=== PATIENT | female | born 1990 | race American Indian/Alaskan Native ===

== ENCOUNTER 2020-06-12 15:47 | Emergency (ER) | payer SELFPAY ==
--- NOTE | 2020-06-12 16:39 | Emergency Department Report ---
ED HPI - General Chief complaint: Vaginal Bleeding Stated complaint: 2MOS PREG BLEEDING Time Seen by Provider: 06/12/20 16:32 Source: patient Mode of arrival: Ambulatory Limitations: No Limitations - History of Present Illness Initial comments: Patient is a 30-year-old female presents emergency room with complaints of one episode of light vaginal spotting that occurred today. She states that she went to the bathroom and when she wiped she noticed a small amount of spotting. She denies any heavy bleeding or passing clots. She states that she has some mild lower abdominal pressure but denies any significant pain. She denies any nausea, vomiting, diarrhea, fever, dysuria, dark urine, odor to the urine, abnormal vaginal discharge, back pain. No past medical history. No allergies to medications. She states that she has an appointment with an ESTIMATOR PRINTING tomorrow 06/13/2020 which will be her first appointment. She states her last menstrual cycle was 04/21/2020. She states that this is her first . - Related Data Allergies Allergy/AdvReac Type Severity Reaction Status Date / Time No Known Allergies Allergy Unverified 06/12/20 16:21 ED Review of Systems ROS: Stated complaint: 2MOS PREG BLEEDING Other details as noted in HPI Comment: All other systems reviewed and negative ED Past Medical Hx - Past Medical History Previous Medical History?: No - Surgical History Additional Surgical History: tonsilectomy - Social History Smoking Status: Never Smoker ED Physical Exam - General Limitations: No Limitations General appearance: alert, in no apparent distress - Head Head exam: Present: atraumatic, normocephalic - Eye Eye exam: Present: normal appearance - ENT ENT exam: Present: mucous membranes moist - Respiratory Respiratory exam: Present: normal lung sounds bilaterally. Absent: respiratory distress, wheezes, rales, rhonchi, stridor, chest wall tenderness, accessory muscle use, decreased breath sounds, prolonged expiratory - Cardiovascular Cardiovascular Exam: Present: regular rate, normal rhythm, normal heart sounds. Absent: systolic murmur, diastolic murmur, rubs, gallop - GI/Abdominal GI/Abdominal exam: Present: soft, normal bowel sounds. Absent: distended, tenderness, guarding, rebound, rigid - Neurological Exam Neurological exam: Present: alert, oriented X3 - Psychiatric Psychiatric exam: Present: normal affect, normal mood - Skin Skin exam: Present: warm, dry, intact ED Course Vital Signs 06/12/20 06/12/20 16:18 18:57 Temperature 98.9 F Pulse Rate 111 H 94 H Respiratory 18 18 Rate Blood Pressure 141/84 Blood Pressure 137/78 [Left] O2 Sat by Pulse 98 100 Oximetry ED Medical Decision Making - Lab Data Result diagrams: 06/12/20 16:43 06/12/20 16:43 Lab Results 06/12/20 06/12/20 06/12/20 Range/Units 16:43 16:43 16:43 WBC 4.5 (4.5-11.0) K/mm3 RBC 3.77 (3.65-5.03) M/mm3 Hgb 13.3 (10.1-14.3) gm/dl Hct 36.9 (30.3-42.9) % MCV 98 H (79-97) fl MCH 35 H (28-32) pg MCHC 36 H (30-34) % RDW 12.6 L (13.2-15.2) % Plt Count 303 (140-440) K/mm3 Lymph % (Auto) 38.5 H (13.4-35.0) % Page % (Auto) 9.0 H (0.0-7.3) % Eos % (Auto) 0.7 (0.0-4.3) % Baso % (Auto) 1.3 (0.0-1.8) % Lymph # (Auto) 1.7 (1.2-5.4) K/mm3 [place] # (Auto) 0.4 (0.0-0.8) K/mm3 Eos # (Auto) 0.0 (0.0-0.4) K/mm3 Baso # (Auto) 0.1 (0.0-0.1) K/mm3 Seg Neutrophils % 50.5 (40.0-70.0) % Seg Neutrophils # 2.3 (1.8-7.7) K/mm3 Sodium 136 L (137-145) mmol/L Potassium 3.6 (3.6-5.0) mmol/L Chloride 100.7 (98-107) mmol/L Carbon Dioxide 26 (22-30) mmol/L Anion Gap 13 mmol/L BUN 7 (7-17) mg/dL Creatinine 0.6 (0.6-1.2) mg/dL Estimated GFR > 60 ml/min BUN/Creatinine Ratio 12 % Glucose 94 (65-100) mg/dL Calcium 9.7 (8.4-10.2) mg/dL HCG, Quant 4474 H (0-4) mIU/mL Urine Color (Yellow) Urine Turbidity (Clear) Urine pH (5.0-7.0) Ur Specific [place] (1.003-1.030) Urine Protein (Negative) mg/dL Urine Glucose (UA) (Negative) mg/dL Urine Ketones (Negative) mg/dL Urine Blood (Negative) Urine Nitrite (Negative) Urine Bilirubin (Negative) Urine Urobilinogen (<2.0) mg/dL Ur Leukocyte Esterase (Negative) Urine WBC (Auto) (0.0-6.0) /HPF Urine RBC (Auto) (0.0-6.0) /HPF U Epithel Cells (Auto) (0-13.0) /HPF Urine Bacteria (Auto) (Negative) /HPF Urine Mucus /HPF Blood Type 06/12/20 06/12/20 Range/Units 16:43 16:45 WBC (4.5-11.0) K/mm3 RBC (3.65-5.03) M/mm3 Hgb (10.1-14.3) gm/dl Hct (30.3-42.9) % MCV (79-97) fl MCH (28-32) pg MCHC (30-34) % RDW (13.2-15.2) % Plt Count (140-440) K/mm3 Lymph % (Auto) (13.4-35.0) % Page % (Auto) (0.0-7.3) % Eos % (Auto) (0.0-4.3) % Baso % (Auto) (0.0-1.8) % Lymph # (Auto) (1.2-5.4) K/mm3 [place] # (Auto) (0.0-0.8) K/mm3 Eos # (Auto) (0.0-0.4) K/mm3 Baso # (Auto) (0.0-0.1) K/mm3 Seg Neutrophils % (40.0-70.0) % Seg Neutrophils # (1.8-7.7) K/mm3 Sodium (137-145) mmol/L Potassium (3.6-5.0) mmol/L Chloride (98-107) mmol/L Carbon Dioxide (22-30) mmol/L Anion Gap mmol/L BUN (7-17) mg/dL Creatinine (0.6-1.2) mg/dL Estimated GFR ml/min BUN/Creatinine Ratio % Glucose (65-100) mg/dL Calcium (8.4-10.2) mg/dL HCG, Quant (0-4) mIU/mL Urine Color Yellow (Yellow) Urine Turbidity Slightly-cloudy (Clear) Urine pH 7.0 (5.0-7.0) Ur Specific [place] 1.027 (1.003-1.030) Urine Protein 30 mg/dl (Negative) mg/dL Urine Glucose (UA) Neg (Negative) mg/dL Urine Ketones Neg (Negative) mg/dL Urine Blood Sm (Negative) Urine Nitrite Neg (Negative) Urine Bilirubin Neg (Negative) Urine Urobilinogen 2.0 (<2.0) mg/dL Ur Leukocyte Esterase Tr (Negative) Urine WBC (Auto) 2.0 (0.0-6.0) /HPF Urine RBC (Auto) 2.0 (0.0-6.0) /HPF U Epithel Cells (Auto) 20.0 H (0-13.0) /HPF Urine Bacteria (Auto) 1+ (Negative) /HPF Urine Mucus 3+ /HPF Blood Type O POSITIVE Vital Signs 06/12/20 06/12/20 16:18 18:57 Temperature 98.9 F Pulse Rate 111 H 94 H Respiratory 18 18 Rate Blood Pressure 141/84 Blood Pressure 137/78 [Left] O2 Sat by Pulse 98 100 Oximetry - Radiology Data Radiology results: report reviewed Ordering Physician: ANDREAS GARCIA Date of Service: 06/12/20 Procedure(s): US OB transvaginal Accession Number(s): [id number] cc: ANDREAS GARCIA OBSTETRICAL ULTRASOUND HISTORY: . Spotting. FINDINGS: The uterus measures 8.4 x 4.2 x 5.7 cm. 3 small cystic structures are seen at t he endometrial cavity. No pole or yolk sac is identified. Right ovary measures 2.8 x 1.5 x 2.6 cm. Left ovary measures 4.5 x 2.2 x 2.6 cm and contains a 2 cm simple cyst and a 9 mm complex cyst. Both ovaries demonstrate flow. Negative for adnexal mass or fluid. IMPRESSION: 1. 3 cystic structures at the endometrial cavity could represent an early gestational sacs. This could be evaluated on follow-up. 2. Simple cyst and small complex cyst left ovary. Signer Name: Minor Taylor MD Signed: 06/12/2020 6:03 PM Workstation Name: [id number] Transcribed By: ES Dictated By: Minor Taylor MD Electronically Authenticated By: Minor Taylor MD Signed Date/Time: 06/12/201802 DD/ 00 TD/TT: - Medical Decision Making Patient is a 30-year-old female presents emergency room with complaints of one episode of light vaginal spotting that occurred today. She states that she went to the bathroom and when she wiped she noticed a small amount of spotting. She denies any heavy bleeding or passing clots. She states that she has some mild lower abdominal pressure but denies any significant pain. She denies any nausea, vomiting, diarrhea, fever, dysuria, dark urine, odor to the urine, abnormal vaginal discharge, back pain. No past medical history. No allergies to medications. She states that she has an appointment with an EST[employer]ATOR [employer] tomorrow 06/13/2020 which will be her first appointment. She states her last menstrual cycle was 04/21/2020. She states that this is her first . Initial vitals with elevated heart rate which improved upon repeat. No abdominal tenderness on exam, no guarding, no rigidity, no peritoneal signs. Labs are stable. Patient is Rh+. hCG quant is 4474. UA shows epithelial cells from contamination, otherwise stable. OB US: 1. 3 cystic structures at the endometrial cavity could represent an early gestational sacs. This could be evaluated on follow-up. 2. Simple cyst and small complex cyst left ovary. Discussed all results with patient and answered questions. Discussed the importance of close [employer] [employer] follow-up, she already has appointment scheduled for tomorrow. Patient given her ultrasound report and advised her to take this to the EST[facility] [employer]. advised pt May take Tylenol as needed for any discomfort. Increase your water intake. Please practice pelvic rest. Please keep your appointment with your EST[employer]ATOR [employer] for tomorrow. Please take your ultrasound report with you and discuss with your ESTIMATOR [employer] about your symptoms. Your ESTIMATOR [employer]ING will likely want you to have a repeat of your hCG quant. Today 06/12/2020 your hCG quant is 4474. return to emergency room immediately for any new or worsening symptoms. - Differential Diagnosis IUP, ectopic, threatened/spontaneous , subchorionic hemorrhage Critical care attestation.: If time is entered above; I have spent that time in minutes in the direct care of this critically ill patient, excluding procedure time. ED Disposition Clinical Impression: Vaginal spotting, Threatened miscarriage Qualifiers: Weeks of gestation: unspecified Qualified Code(s): Z34.90 - Encounter for supervision of normal , unspecified, unspecified trimester Ovarian cyst Qualifiers: Laterality: left Qualified Code(s): N83.202 - Unspecified ovarian cyst, left side Disposition: TO HOME OR SELFCARE Is pt being admited?: No Does the pt Need Aspirin: No Condition: Stable Instructions: Threatened Miscarriage Additional Instructions: May take Tylenol as needed for any discomfort. Increase your water intake. Sarah mosley practice pelvic rest. Please keep your appointment with your EST[employer] [employer] for tomorrow. Please take your ultrasound report with you and discuss with your EST[employer] [employer] about your symptoms. Your [employer] [employer] will likely want you to have a repeat of your hCG quant. Today 06/12/2020 your hCG quant is 4474. return to emergency room immediately for any new or worsening symptoms. Referrals: PRIMARY CARE,MD [Primary Care Provider] - 2-3 Days your, cyanide case hardener [Other] - 2-3 Days Time of Disposition: 18:12 Print Language: JAPANESE
[2020-06-12 17:10] LABS: Bacteria,Urine 1+ /HPF (Negative); Bilirubin,Urine NEG (Negative); Blood,Urine SM (Negative); Color,Urine Yellow (Yellow); Mucus,Urine 3+ /HPF
[2020-06-12 17:16] LABS: Basophils # (Auto) 0.1 K/mm3 (0.0-0.1); Basophils % (Auto) 1.3 % (0.0-1.8); Eosinophils % (Auto) 0.7 % (0.0-4.3); Hematocrit 36.9 % (30.3-42.9); Hemoglobin 13.3 gm/dl (10.1-14.3); Lymphocytes # (Auto) 1.7 K/mm3 (1.2-5.4); Lymphocytes % (Auto) 38.5 % (13.4-35.0); Mean Corpuscular HGB Conc 36 % (30-34); Mean Corpuscular Volume 98 fl (79-97); Monocytes # (Auto) 0.4 K/mm3 (0.0-0.8); Platelet Count 303 K/mm3 (140-440); Red Blood Count 3.77 M/mm3 (3.65-5.03); Red Cell Distribution Width 12.6 % (13.2-15.2)
[2020-06-12 17:19] LABS: Blood Urea Nitrogen 7 mg/dL (7-17); Calcium 9.7 mg/dL (8.4-10.2); Hemolysis Index 5
[2020-06-12 17:20] LABS: BUN/Creatinine Ratio 12
--- NOTE | 2020-06-12 18:07 | Ultrasound Report ---
OBSTETRICAL ULTRASOUND HISTORY: . Spotting. FINDINGS: The uterus measures 8.4 x 4.2 x 5.7 cm. 3 small cystic structures are seen at the endometrial cavity. No pole or yolk sac is identified. Right ovary measures 2.8 x 1.5 x 2.6 cm. Left ovary measures 4.5 x 2.2 x 2.6 cm and contains a 2 cm s imple cyst and a 9 mm complex cyst. Both ovaries demonstrate flow. Negative for adnexal mass or fluid. IMPRESSION: 1. 3 cystic structures at the endometrial cavity could represent an early gestational sacs. This coul d be evaluated on follow-up. 2. Simple cyst and small complex cyst left ovary. Signer Name: Minor Taylor MD Signed: 06/12/2020 6:03 PM Workstation Name: [id number]
[2020-06-12 18:58] VITALS: BP 137/78
== END 2020-06-12 19:01 | disposition home or self-care (01) ==
LOC: ED 15:47
DX: O20.0 Threatened abortion (principal); O26.891 Other specified pregnancy related conditions, first trimester; N83.202 Unspecified ovarian cyst, left side; N93.9 Abnormal uterine and vaginal bleeding, unspecified; Z3A.01 Less than 8 weeks gestation of pregnancy; Z90.49 Acquired absence of other specified parts of digestive tract
CPT/HCPCS: 36415; 76801; 76802; 76817; 80048; 81001; 84702; 85025; 86900; 86901

== ENCOUNTER 2020-06-17 16:02 | Emergency (ER) | payer OTHER ==
[2020-06-17 16:31] VITALS: BP 134/85
[2020-06-17 17:10] LABS: Basophils % (Auto) 0.9 % (0.0-1.8); Eosinophils # (Auto) 0.1 K/mm3 (0.0-0.4); Eosinophils % (Auto) 1.5 % (0.0-4.3); Hematocrit 35.8 % (30.3-42.9); Hemoglobin 12.6 gm/dl (10.1-14.3); Lymphocytes # (Auto) 1.3 K/mm3 (1.2-5.4); Lymphocytes % (Auto) 33.3 % (13.4-35.0); Mean Corpuscular HGB Conc 35 % (30-34); Mean Corpuscular Volume 99 fl (79-97); Monocytes # (Auto) 0.3 K/mm3 (0.0-0.8); Monocytes % (Auto) 6.9 % (0.0-7.3); Platelet Count 271 K/mm3 (140-440); Red Cell Distribution Width 12.5 % (13.2-15.2)
--- NOTE | 2020-06-17 17:22 | Emergency Department Report ---
ED HPI - General Chief complaint: Vaginal Bleeding Stated complaint: 8WKS AND BLEEDING Time Seen by Provider: 06/17/20 17:05 Source: patient Mode of arrival: Ambulatory Limitations: No Limitations - History of Present Illness Initial comments: Patient is a 30-year-old female presents emergency room with complaints of vaginal bleeding that began again on 06/14/2020. She states that now she is experiencing lower abdominal cramping which she states that she was not feeling before. She states that she is having to change her pad approximately 3-4 times a day which is typical of her menstrual cycles. She was evaluated emergency department on 06/12/2020 and diagnosed with a threatened miscarriage at that time and had an ultrasound which showed 3 gestational sacs. She states that she followed up with her PERINATAL TECH the next day and they did blood work but she is not sure of the results. She states that she reports today due to continued bl eeding and now experiencing lower abdominal cramping. She denies any fever, nausea, vomiting, diarrhea, dysuria, abnormal vaginal discharge. She states her last menstrual cycle was April 21. She states this is her first . - Related Data Allergies Allergy/AdvReac Type Severity Reaction Status Date / Time No Known Allergies Allergy Unverified 06/12/20 16:21 ED Review of Systems ROS: Stated complaint: 8WKS AND BLEEDING Other details as noted in HPI Comment: All other systems reviewed and negative ED Past Medical Hx - Surgical History Additional Surgical History: tonsilectomy - Social History Smoking Status: Never Smoker ED Physical Exam - General Limitations: No Limitations General appearance: alert, in no apparent distress - Head Head exam: Present: atraumatic, normocephalic - Eye Eye exam: Present: normal appearance - ENT ENT exam: Present: mucous membranes moist - Respiratory Respiratory exam: Present: normal lung sounds bilaterally. Absent: respiratory distress, wheezes, rales, rhonchi, stridor, chest wall tenderness, accessory muscle use, decreased breath sounds, prolonged expiratory - Cardiovascular Cardiovascular Exam: Present: regular rate, normal rhythm, normal heart sounds. Absent: systolic murmur, diastolic murmur, rubs, gallop - GI/Abdominal GI/Abdominal exam: Present: soft, normal bowel sounds. Absent: distended, tenderness, guarding, rebound, rigid - Neurological Exam Neurological exam: Present: alert, oriented X3 - Psychiatric Psychiatric exam: Present: normal affect, normal mood - Skin Skin exam: Present: warm, dry, intact ED Course Vital Signs 06/17/20 06/17/20 16:27 16:32 Temperature 122.0 F H 98.6 F Pulse Rate 105 H Respiratory 20 Rate Blood Pressure 134/85 O2 Sat by Pulse 100 Oximetry ED Medical Decision Making - Lab Data Result diagrams: 06/17/20 16:59 Lab Results 06/17/20 06/17/20 Range/Units 16:59 16:59 WBC 4.0 L (4.5-11.0) K/mm3 RBC 3.60 L (3.65-5.03) M/mm3 Hgb 12.6 (10.1-14.3) gm/dl Hct 35.8 (30.3-42.9) % MCV 99 H (79-97) fl MCH 35 H (28-32) pg MCHC 35 H (30-34) % RDW 12.5 L (13.2-15.2) % Plt Count 271 (140-440) K/mm3 Lymph % (Auto) 33.3 (13.4-35.0) % [place] % (Auto) 6.9 (0.0-7.3) % Eos % (Auto) 1.5 (0.0-4.3) % Baso % (Auto) 0.9 (0.0-1.8) % Lymph # (Auto) 1.3 (1.2-5.4) K/mm3 [place] # (Auto) 0.3 (0.0-0.8) K/mm3 Eos # (Auto) 0.1 (0.0-0.4) K/mm3 Baso # (Auto) 0.0 (0.0-0.1) K/mm3 Seg Neutrophils % 57.4 (40.0-70.0) % Seg Neutrophils # 2.3 (1.8-7.7) K/mm3 HCG, Quant 462.9 H (0-4) mIU/mL Vital Signs 06/17/20 06/17/20 16:27 16:32 Temperature 122.0 F H 98.6 F Pulse Rate 105 H Respiratory 20 Rate Blood Pressure 134/85 O2 Sat by Pulse 100 Oximetry - Radiology Data Radiology results: report reviewed OB ultrasound Radiologist Ye Davion, MD Impression No gestational sac identified in the uterus. Given findings on the prior exam, findings likely indicate loss. Recommend correlation with quantitative hCG values. - Medical Decision Making Patient is a 30-year-old female presents emergency room with complaints of vaginal bleeding that began again on 06/14/2020. She states that now she is experiencing lower abdominal cramping which she states that she was not feeling before. She states that she is having to change her pad approximately 3-4 times a day which is typical of her menstrual cycles. She was evaluated emergency department on 06/12/2020 and diagnosed with a threatened miscarriage at that time and had an ultrasound which showed 3 gestational sacs. She states that she followed up with her PERINATAL TECH the next day and they did blood work but she is not sure of the results. She states that she reports today due to continued bleeding and now experiencing lower abdominal cramping. She denies any fever, nausea, vomiting, diarrhea, dysuria, abnormal vaginal discharge. She states her last menstrual cycle was April 21. She states this is her first . Initial temp was entered incorrectly, on repeat it is normal, vitals are stable. Labs with decreased hCG quant at 462. her hcg quant on 06/12/2020 was 4474. pt is Rh positive. OB US: No gestational sac identified in the uterus. Given findings on the prior exam, findings likely indicate loss. Recommend correlation with quantitative hCG values. Given decrease in hCG quant, this is indicative of spontaneous . Discussed all findings with patient and answered questions. Advised patient Please increase your water intake. Follow- up with your PERINATAL TECH. May take Tylenol as needed for discomfort. Return to emergency room for any new or worsening symptoms. Critical care attestation.: If time is entered above; I have spent that time in minutes in the direct care of this critically ill patient, excluding procedure time. ED Disposition Clinical Impression: Spontaneous Disposition: DC-01 TO HOME OR SELFCARE Is pt being admited?: No Does the pt Need Aspirin: No Condition: Stable Instructions: Miscarriage, [id number] Additional Instructions: Please increase your water intake. Follow-up with your PERINATAL TECH. May take Tylenol as needed for discomfort. Return to emergency room for any new or wo rsening symptoms. Referrals: PRIMARY CARE, [Primary Care Provider] - 2-3 Days your, size changer [Other] - 2-3 Days Time of Disposition: 18:13 Print Language: YI
--- NOTE | 2020-06-17 18:02 | Ultrasound Report ---
ULTRASOUND OBSTETRIC INDICATION / CLINICAL INFORMATION: bleeding. Clinical Gestational Age (GA): 8.1 weeks.days TECHNIQUE: Transvaginal. COMPARISON: 06/12/2020 FINDINGS: GESTATIONAL SAC: None. YOLK SAC: None. EMBRYO/FETUS: None. ADNEXA: No significant abnormality. FREE FLUID: None. ADDITIONAL FINDINGS: None. IMPRESSION: No gestational sac identified in the uterus. Given findings on the prior exam, findings likely indica te loss. Recommend correlation with quantitative hCG values. Signer Name: Ye Ricardo MD Signed: 06/17/2020 5:58 PM Workstation Name: [id number]
== END 2020-06-17 18:46 | disposition home or self-care (01) ==
LOC: ED 16:02
DX: O03.9 Complete or unspecified spontaneous abortion without complication (principal); Z3A.08 8 weeks gestation of pregnancy
CPT/HCPCS: 36415; 76801; 76817; 84702; 85025; 99283